=== PATIENT | female | born 1995 | race Two or more races ===

== ENCOUNTER 2022-08-19 10:59 | Emergency (ER) | payer MEDICAID ==
[~2022-08-19] VITALS: Ht 165.1 cm; Wt 89.5 kg
[~2022-08-19 10:59] MED LIST: ALBUAER3 IN; LURA40TA PO; SERT25TA84 PO
[2022-08-19] MEDS ORDERED: MORPHINE SULFATE INJ 2 MG/ml SYRG IM ONE (11:30)
[2022-08-19] MEDS ORDERED: ONDANSETRON ODT 4 MG TAB PO ONE (11:30)
[2022-08-19 11:49] LABS: Basophils # (auto) 0.1 10 ^3/uL (0-0.2); Basophils % (auto) 0.7 % (0.0-2.0); Eosinophils # (auto) 0.1 10 ^3/uL (0-0.8); Eosinophils % (auto) 0.6 % (0.0-7.0); Hematocrit 46.5 % (36.0-46.0); Hemoglobin 15.5 g/dL (12.2-16.2); Lymphocytes % (auto) 21.1 % (10.0-50.0); Mean Corpuscular Hemoglobin 29.4 pg (28.0-32.0); Mean Corpuscular Hgb Conc. 33.2 g/dL (32.0-36.0); Mean Corpuscular Volume 88.4 fL (80.0-100.0); Monocytes # (auto) 0.6 10 ^3/uL (0-1.3); Monocytes % (auto) 4.4 % (0.0-12.0); Neutrophils # (auto) 10.5 10 ^3/uL (1.6-8.6); Neutrophils % (auto) 73.2 % (37.0-80.0); Nucleated Red Blood Cells % 0.2 %; Red Blood Cells 5.26 10^6/uL (4.0-5.20); Red Cell Distribution Width 12.9 % (11.8-14.3); White Blood Cell 14.4 10^3/uL (4.4-10.8)
[2022-08-19 12:41] LABS: Calcium 9.5 mg/dL (8.5-10.1); Potassium 3.8 mmol/L (3.5-5.1)
[2022-08-19 12:52] LABS: Albumin 4.4 g/dL (3.4-5.0); BUN/Creatinine Ratio 16.4 (10.0-20.0); Bilirubin, Total 0.6 mg/dL (0.2-1.0); Total Protein 8.6 g/dL (6.4-8.2)
[2022-08-19] MEDS ORDERED: ONDANSETRON HCL 4 MG/2 ML VIAL IM ONE (13:00)
[2022-08-19] MEDS ORDERED: ONDA-144 PO (13:03)
[2022-08-19] MEDS ORDERED: HYDROcodone-ACET 5/325MG TAB PO ONE (13:15)
[2022-08-19] MEDS ORDERED: HYDR-4902 PO (13:16)
[2022-08-19 13:30] VITALS: BP 138/74
[2022-08-19 14:08] LABS: Urine Bacteria NONE SEEN /hpf (None Seen); Urine Blood TRACE /uL (Negative); Urine Mucus MODERATE (None Seen); Urine Specific Gravity 1.029 (1.001-1.035); Urine WBC 36 /hpf (0 - 5)
== END 2022-08-19 14:16 | disposition home or self-care (01) ==
LOC: ER 10:59
DX: K80.20 Calculus of gallbladder without cholecystitis without obstruction (principal); F17.210 Nicotine dependence, cigarettes, uncomplicated; F12.10 Cannabis abuse, uncomplicated; Z88.0 Allergy status to penicillin; Z90.49 Acquired absence of other specified parts of digestive tract
CPT/HCPCS: 36415; 76705; 80053; 81001; 81025; 83690; 85025; 96372; 99285; J2270; J2405; Q0162

== ENCOUNTER 2022-08-22 07:13 | Inpatient (IN) | payer MEDICAID ==
[2022-08-17 14:09] LABS: Basophils # (auto) 0.1 10 ^3/uL (0-0.2); Basophils % (auto) 0.7 % (0.0-2.0); Eosinophils % (auto) 8.9 % (0.0-7.0); Hematocrit 44.8 % (36.0-46.0); Hemoglobin 15.2 g/dL (12.2-16.2); Lymphocytes # (auto) 3.1 10 ^3/uL (0.4-5.4); Lymphocytes % (auto) 28.8 % (10.0-50.0); Mean Corpuscular Hemoglobin 30.1 pg (28.0-32.0); Mean Corpuscular Hgb Conc. 33.9 g/dL (32.0-36.0); Mean Corpuscular Volume 88.8 fL (80.0-100.0); Monocytes # (auto) 0.7 10 ^3/uL (0-1.3); Monocytes % (auto) 6.9 % (0.0-12.0); Neutrophils # (auto) 5.9 10 ^3/uL (1.6-8.6); Neutrophils % (auto) 54.7 % (37.0-80.0); Nucleated Red Blood Cells % 0.3 %; Red Blood Cells 5.05 10^6/uL (4.0-5.20); Red Cell Distribution Width 13.1 % (11.8-14.3); White Blood Cell 10.8 10^3/uL (4.4-10.8)
[2022-08-17 14:23] LABS: Urine Bacteria NONE SEEN /hpf (None Seen); Urine Blood 2+ /uL (Negative); Urine Mucus FEW (None Seen); Urine Specific Gravity 1.021 (1.001-1.035); Urine WBC 3 /hpf (0 - 5)
[2022-08-17 14:33] LABS: Partial Thromboplastin Time 30.6 sec (24.6-33.4)
[2022-08-17 14:45] LABS: Albumin 4.1 g/dL (3.4-5.0); Calcium 9.1 mg/dL (8.5-10.1)
[2022-08-17 14:49] LABS: BUN/Creatinine Ratio 14.7 (10.0-20.0); Bilirubin, Total 0.3 mg/dL (0.2-1.0); Total Protein 8.2 g/dL (6.4-8.2)
[~2022-08-22] VITALS: Ht 165.1 cm; Wt 89.2 kg
[~2022-08-22 07:13] MED LIST changes: +HYDR-4902 PO; +ONDA-144 PO
[2022-08-22] MEDS ORDERED: levoFLOXacin 500MG 100 ML IV ONE (08:14)
[2022-08-22] MEDS ORDERED: LIDOCAINE W/ EPINEPHRINE 1% 20ML VIAL ONE (08:58)
[2022-08-22] MEDS ORDERED: BUPIVACAINE HCL 0 ML ONE (09:01)
[2022-08-22] MEDS ORDERED: MIDAZOLAM HCL 2MG/2ML 2ml VIAL (1mg/ml) ONE (09:40)
[2022-08-22] MEDS ORDERED: fentaNYL CITRATE 100 MCG/2 ML VL ONE (09:40)
[2022-08-22] MEDS ORDERED: ROCURONIUM 10MG/ML 10ML VIAL IV ONE (09:40)
[2022-08-22] MEDS ORDERED: ONDANSETRON HCL 4 MG/2 ML VIAL ONE (09:41)
[2022-08-22] MEDS ORDERED: LIDOCAINE 2% (LOCAL ANESTH.) PF 5ml SDV ONE (09:41)
[2022-08-22] MEDS ORDERED: PROPOFOL 10 MG/ML 20 ML IV ONE (09:41)
[2022-08-22] MEDS ORDERED: ONDANSETRON HCL 4 MG/2 ML VIAL IV PRN ×2 (09:45→10:45)
[2022-08-22] MEDS ORDERED: HYDROmorphone HCL 2 MG/ML VL/or syr IV PRN ×3 (09:45→10:45)
[2022-08-22] MEDS ORDERED: HYDROmorphone HCL 2 MG/ML VL/or syr ONE (10:15)
[2022-08-22] MEDS ORDERED: GLYCOPYRROLATE 0.2 MG/ML 1ML VIAL ONE (10:58)
[2022-08-22] MEDS ORDERED: NEOSTIGMINE 1 MG/ML INJ (10mg/10ML VIAL) ONE (10:58)
[2022-08-22] MEDS ORDERED: BUPIVACAINE 0.25% INJ 50ML VIAL ONE (11:34)
[2022-08-22] MEDS: ACETAMINOPHEN/CODEINE#3 (300/30mg) TAB PO PRN ×3 (11:51→21:31)
[2022-08-22] MEDS ORDERED: NICOTINE 21MG/24 HR TOPICAL PATCH TD ONE (15:30)
[2022-08-22] MEDS: metroNIDAZOLE 500MG/100ML 100 ML IV SCH ×2 (15:54→21:28)
[2022-08-22 17:00] VITALS: BP 121/78
[2022-08-22] MEDS: D5W/SOD CHL 0.45%/KCL 20MEQ 1,000 ML IV SCH ×2 (19:05→22:57)
[2022-08-22 20:00] VITALS: BP 111/62
[2022-08-22 21:30] VITALS: BP 111/62
[2022-08-23] MEDS: ACETAMINOPHEN/CODEINE#3 (300/30mg) TAB PO PRN (03:24)
[2022-08-23 04:43] VITALS: BP 133/67
[2022-08-23 05:56] LABS: Basophils # (auto) 0 10 ^3/uL (0-0.2); Basophils % (auto) 0.2 % (0.0-2.0); Eosinophils # (auto) 0.3 10 ^3/uL (0-0.8); Eosinophils % (auto) 2.6 % (0.0-7.0); Hematocrit 37.8 % (36.0-46.0); Hemoglobin 12.8 g/dL (12.2-16.2); Lymphocytes # (auto) 2.8 10 ^3/uL (0.4-5.4); Lymphocytes % (auto) 26.5 % (10.0-50.0); Mean Corpuscular Hemoglobin 30.4 pg (28.0-32.0); Mean Corpuscular Volume 89.5 fL (80.0-100.0); Monocytes # (auto) 0.9 10 ^3/uL (0-1.3); Neutrophils # (auto) 6.7 10 ^3/uL (1.6-8.6); Neutrophils % (auto) 62.7 % (37.0-80.0); Red Blood Cells 4.22 10^6/uL (4.0-5.20); Red Cell Distribution Width 12.9 % (11.8-14.3); White Blood Cell 10.7 10^3/uL (4.4-10.8)
[2022-08-23] MEDS: metroNIDAZOLE 500MG/100ML 100 ML IV SCH (06:05)
[2022-08-23 06:07] LABS: Potassium 3.7 mmol/L (3.5-5.1)
[2022-08-23 06:13] LABS: Albumin 3.1 g/dL (3.4-5.0); BUN/Creatinine Ratio 10.2 (10.0-20.0); Bilirubin, Total 0.5 mg/dL (0.2-1.0); Calcium 8.4 mg/dL (8.5-10.1); Total Protein 6.4 g/dL (6.4-8.2)
[2022-08-23 09:00] VITALS: BP 128/78
[2022-08-23] MEDS ORDERED: NICOTINE 21MG/24 HR TOPICAL PATCH TD SCH (10:00)
[2022-08-23] MEDS ORDERED: PANTOPRAZOLE 40 MG/10 ML VIAL INJ IV SCH (10:00)
[2022-08-23] MEDS ORDERED: SERTRALINE HCL 50 MG TAB PO SCH (10:00)
[2022-08-23] MEDS ORDERED: levoFLOXacin 500MG 100 ML IV SCH (10:00)
[2022-08-23] MEDS ORDERED: LEVO500T31 PO (10:18)
[2022-08-23] MEDS ORDERED: TRAM50TA2 PO (10:18)
[2022-08-23] MEDS ORDERED: DOCU-94 PO (10:18)
[2022-08-23] MEDS ORDERED: METR500T PO (10:18)
== END 2022-08-23 12:30 | disposition home or self-care (01) | DRG 263 ==
LOC: SUR 07:13 → OVERFLOW 12:07 → EAST 15:24
PROVIDERS: ADMIT Internal Medicine; ATTEND Internal Medicine
PROC: 0FT44ZZ Resection of Gallbladder, Percutaneous Endoscopic Approach (ICD-10-PCS; principal; 2022-08-22 09:37)
DX: K80.10 Calculus of gallbladder with chronic cholecystitis without obstruction (principal); E66.01 Morbid (severe) obesity due to excess calories; F31.9 Bipolar disorder, unspecified; F17.210 Nicotine dependence, cigarettes, uncomplicated; Z68.32 Body mass index [BMI] 32.0-32.9, adult; Z88.0 Allergy status to penicillin; Z88.8 Allergy status to other drugs, medicaments and biological substances
CPT/HCPCS: 36415; 80053; 81001; 84702; 85025; 85610; 85730; 86850; 86900; 86901; C9113; G0378; J1956; J2001; J2250; J2405; J2704; J3490